=== PATIENT | female | born 1975 | race Caucasian/White ===

== ENCOUNTER 2016-09-29 16:44 | Emergency (ER) | payer MEDICARE, OTHER ==
[2016-09-29 16:51] VITALS: BP 103/48
[2016-09-29 17:12] LABS: Urine Bilirubin Negative (NEGATIVE); Urine Blood Negative /ul (NEGATIVE); Urine Ketone Negative (NEGATIVE); Urine Nitrite Negative (NEGATIVE); Urine Protein Negative (NEGATIVE); Urine Specific Gravity 1.025 SP.GR. (1.005-1.010); Urine Urobilinogen Normal (NORMAL)
[2016-09-29] MEDS ORDERED: KETOROLAC TROMETHAMINE 60 MG/2 ML VIAL IM ONE ×2 (17:15→17:17)
--- NOTE | 2016-09-29 17:16 | ERNOTE ---
Back Pain ER HPI Date of Service: 09/29/16 Presenting Symptoms: hx chronic back pain, other - R flank pain Time Seen by Provider: 09/29/16 16:55 Source: patient Exam Limitations: no limitations Immunizations: IMMUNIZATION HX Immunizations Up to Date Yes History of Influenza Vaccine No Hx Pneumococcal Vaccination No Allergies/Adverse Reactions: Allergies No Known Allergies Allergy (Verified 09/29/16 16:52) Home Medications: HOME MEDICATIONS Levetiracetam [Keppra] 750 mg PO BID 08/01/15 [Last Taken 08/01/15] Cyclobenzaprine HCl [Flexeril] 10 mg PO TID PRN #30 tab 09/29/16 [Last Taken Unknown] Naproxen [Naprosyn] 500 mg PO BID PRN #60 tab 09/29/16 [Last Taken Unknown] Narrative: Pt. comes in with sudden onset R flank pain that radiates to B lower back and down R buttock. Pt. denies any injury or specific spine pain. Pt. denies any alleviating factors but states that the pain resolved after two hours but then returned 15 hours ago severely and awoke pt. from the middle of sleep and has not resolved. pt. denies any prehospital treatment. Pt. denies any dysuria. Review of Systems - Review of Systems Constitutional: Present: no symptoms reported. Absent: recent illness, fever, chills, weakness, fatigue EYE: Present: no symptoms reported ENT: Present: no symptoms reported Respiratory: Present: no symptoms reported. Absent: shortness of breath, cough , wheezing Cardiology: Present: no symptoms reported. Absent: chest pain, palpitations, edema Gastrointestinal/Abdominal: Present: no symptoms reported. Absent: nausea, vomiting, diarrhea Genitourinary: Present: no symptoms reported. Absent: pain, dysuria, hematuria , decreased urinary output Musculoskeletal: Present: back pain - R flank B lower back Skin: Present: no symptoms reported. Absent: rash, change in color Neurological: Present: no symptoms reported. Absent: headache, dizziness/light- headedness, weakness, numbness, tingling All Other Systems: All systems neg except as marked - Patient's Past Medical History Patient History - Medical: Seizures Patient History - Cardiac/Respiratory: No pertinent hx Patient History - Cancer: No Hx of Cancer Patient History - Other: None - Family History Mother Family History - Medical: History Unknown Father Family History - Medical: History Unknown - Social History Living Situations: home Abuse History: No History of abuse Psych History: No pertinent hx Alcohol Use: none Drug Use: marijuana - Immunizations Immunizations Up to Date: Yes Hx Pneumococcal Vaccination: No History of Influenza Vaccine: No Physical Exam - Physical Exam General Appearance: Present: wd/wn, alert, no apparent distress Eye Exam: Normal inspection: bilateral, PERRL: bilateral, EOMI: bilateral Ears, Nose, Throat: Present: normal ENT inspection, hearing grossly normal, normal pharynx Neck: Present: normal inspection, nontender. Absent: lymphadenopathy (R), lymphadenopathy (L) Respiratory: Present: no respiratory distress, normal breath sounds, no accessory muscle use, chest nontender, lungs clear Cardiovascular/Chest: Present: regular rate, rhythm, no murmur, normal peripheral pulses Gastrointestinal/Abdominal: Present: normal bowel sounds, nontender, nondistended, soft, no organomegaly Back Exam: Present: normal range of motion, no vertebral tenderness, CVA tenderness (R). 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 Absent: pallor, skin rash ED Progress - Results and Orders Patient's Lab Results:: I have reviewed the patient's lab results. - Vital Signs Patient's Vital Signs:: I have reviewed the patient's vital signs. Vital Signs: Vital Signs 09/29/16 16:46 Temperature 36.7 C Pulse Rate 71 Respiratory 12 Rate Blood Pressure 103/48 O2 Sat by Pulse 100 Oximetry - X-Ray X-Ray #1 X-Ray: lumbosacral Interpretation: Interp. by me X-ray Comments: DDD of L3/L4 and L2/ L3 and L4/ L5 - Progress/Reassessment Chief Complaint: Back Pain Progress:: Improved Departure Clinical Impression: Degenerative disk disease Qualifiers: Spinal region: lumbosacral Qualified Code(s): M51.37 - Other intervertebral disc degeneration, lumbosacral region Sciatica Qualifiers: Laterality: right Qualified Code(s): M54.31 - Sciatica, right side - Departure Disposition: Home self-care Condition: Good Instructions: Sciatica With [facility] Additional Instructions: Please follow up with primary provider in 2-3 days. Referrals: Niels Baldwin PAC [Primary Care Provider] - Prescriptions: Cyclobenzaprine HCl [Flexeril] 10 mg PO TID PRN #30 tab PRN Reason: MUSCLE SPASMS Naproxen [Naprosyn] 500 mg PO BID PRN #60 tab PRN Reason: Pain
[2016-09-29 17:30] LABS: Urine Appearance Clear; Urine Bacteria 1+; Urine Color Yellow; Urine Hyaline Cast 0-5 /LPF; Urine Mucus Few - 1+; Urine Other Cast 0-5 /LPF; Urine RBC None Seen /hpf (0-5); Urine WBC 0-5 /hpf (0-5)
== END 2016-09-29 18:14 | disposition home or self-care (01) ==
LOC: ER 16:44
DX: M51.37 Other intervertebral disc degeneration, lumbosacral region (principal); M54.31 Sciatica, right side

== ENCOUNTER 2016-11-11 14:43 | Emergency (ER) | payer OTHER ==
--- OUTSIDE RECORDS SUMMARY | 2016-11-11 15:26 | XMS REPORT | Continuity of Care Document ---
:1975 Author Organization [facility] ([facility]) Address [address] [place] [address] Phone [phone] Care Team Providers Name Role Phone Niels Baldwin Primary Care Provider [phone] Source Comments This disclosure is being made pursuant to the Care Everywhere program, applicable federal and state laws, and may not contain all informaitonavailable regarding this patient.[facility] ([facility]) Active Allergies and Adverse Reactions Not on File Current Medications Not on file Active Problems Not on file Most Recent Encounters Date Type Specialty Providers Description 10/07/2016 Office Visit [place] [facility] Niels Baldwin, PA-C Chief Comp : Patient Reported Reason For Visit Social History Tobacco Use Types Packs/Day Years Used Date Never Assessed Plan of Care Health Maintenance Due Date Last Done Comments Hepatitis B Vaccine (1 of 3 - Primary Series) 1975 Tdap Vaccine 02/10/1988 Lipid Disorder Screening 1995 MMR Vaccine 1995 Td Vaccine 1995 Cervical Cancer Screening 2007 Influenza Vaccine: Seasonal (#1) 03/17/2016 Results from Last 3 Months Not on file
--- NOTE | 2016-11-11 15:56 | ERNOTE ---
Medical Problem HPI - General Chief Complaint: General Assessment Time Seen by Provider: 11/11/16 15:16 Source: patient - Immun/Allergies/Home Medications Immunizations: IMMUNIZATION HX Immunizations Up to Date Yes History of Influenza Vaccine No Hx Pneumococcal Vaccination No Allergies/Adverse Reactions: Allergies No Known Allergies Allergy (Verified 11/11/16 15:03) Home Medications: HOME MEDICATIONS levETIRAcetam [Keppra] 750 mg PO BID 08/01/15 [Last Taken 08/01/15] - History of Present History Narrative: Patient presents with a cyst on the left side of her neck that so many years standing. She believes it is getting somewhat worse and is now tired of it and wishes to have it taken out. She describes a moderate chronic pain with palpation. Timing: constant Severity: moderate Review of Systems - Review of Systems Constitutional: Present: See HPI EYE: Present: no symptoms reported ENT: Present: no symptoms reported Respiratory: Present: no symptoms reported Cardiology: Present: no symptoms reported Gastrointestinal/Abdominal: Present: no symptoms reported Genitourinary: Present: no symptoms reported Musculoskeletal: Present: no symptoms reported Skin: Present: See HPI Neurological: Present: no symptoms reported Endocrine: Present: no symptoms reported Hematologic/Lymphatic: Present: no symptoms reported Psych: Present: no symptoms reported - Patient's Past Medical History Patient History - Medical: Seizures Patient History - Cardiac/Respiratory: No pertinent hx Patient History - Cancer: No Hx of Cancer Patient History - Surgical Procedures: Other Patient History - Other: None LMP (females 10-50): last week - Family History Mother Family History - Medical: History Unknown Father Family History - Medical: History Unknown - Social History Living Situations: home Abuse History: No History of abuse Psych History: No pertinent hx Smoking Status: Current every day smoker Have you smoked in the past 12 months: Yes Alcohol Use: none Drug Use: marijuana - Immunizations Immunizations Up to Date: Yes Hx Pneumococcal Vaccination: No History of Influenza Vaccine: No Physical Exam - Physical Exam General Appearance: Present: wd/wn, alert, mild distress Eye Exam: Normal inspection: bilateral, PERRL: bilateral Ears, Nose, Throat: Present: normal ENT inspection, H, normal pharynx Neck: Present: normal inspection, nontender Respiratory: Present: no respiratory distress, normal breath sounds, no accessory muscle use, chest nontender, lungs clear Cardiovascular/Chest: Present: regular rate, rhythm, no murmur, normal peripheral pulses Gastrointestinal/Abdominal: Present: normal bowel sounds, nontender, nondistended, soft, no organomegaly Rectal Exam: Present: deferred Back Exam: Present: normal inspection, normal range of motion Extremity Exam: Present: normal inspection, non-tender, no edema, normal range of motion Neurological Exam: Present: alert, oriented, normal mood/affect Skin Exam: Present: normal color, warm/dry, other - cyst like structure located on the left side of the neck Lymphatic Exam: Present: no adenopathy ED Progress - Vital Signs Patient's Vital Signs:: I have reviewed the patient's vital signs. Vital Signs: Vital Signs 11/11/16 14:58 Temperature 37.4 C Pulse Rate 78 Respiratory 16 Rate Blood Pressure 109/83 O2 Sat by Pulse 78 L Oximetry - Progress/Reassessment Chief Complaint: General Assessment Progress:: Unchanged Plan - Plan Plan: I discussed this epidermal inclusion cyst with Dr. Ace and he agrees to come over and examine the patient and determined the next appropriate course of action. Departure - Departure Clinical Impression: Epidermal inclusion cyst Disposition: Home Follow Up Needed Condition: Good Additional Instructions: Keep your appt with Dr. Ace
[2016-11-12 00:56] VITALS: BP 118/69
== END 2016-11-11 17:30 | disposition home or self-care (01) ==
LOC: ER 14:43
DX: L72.0 Epidermal cyst (principal); Z72.0 Tobacco use

== ENCOUNTER 2016-11-16 15:41 | Day surgery (SDC) | payer OTHER ==
[2016-11-16] MEDS ORDERED: NORMAL SALINE 1,000 ML IV ONE (16:02)
[2016-11-16 16:31] LABS: Hematocrit 37.3 % (37.0-47.0); Hemoglobin 12.5 gm/dL (12.5-16.0); Mean Cell Volume 92.1 fl (78-100); Mean Corpuscular Hemoglobin 30.9 pg (27-31); Mean Corpuscular Hgb Conc 33.5 g/dl (32-36); Mean Platelet Volume 9.8 fl (6.0-9.5); Neutrophil # 5.2 K/mm3 (1.3-6.0); Neutrophil % 53.9 % (42-75.0); Platelet Count 208 K/mm3 (150-450); Red Blood Count 4.05 M/mm3 (4.2-5.4); Red Cell Distribution Width 13.2 % (11.5-14.0); White Blood Count 9.7 K/mm3 (4.0-10.5)
--- NOTE | 2016-11-16 16:34 | ERNOTE ---
Integumentary HPI - Narrative Date of Service: 11/16/16 - General Time Seen by Provider: 11/16/16 15:57 Source: patient Exam Limitations: no limitations - Immun/Allergies/Home Medications Immunizations: IMMUNIZATION HX Immunizations Up to Date Yes History of Influenza Vaccine No Hx Pneumococcal Vaccination No Allergies/Adverse Reactions: Allergies Allergy/AdvReac Type Severity Reaction Status Date / Time No Known Allergies Allergy Verified 11/16/16 15:54 Home Medications: HOME MEDICATIONS levETIRAcetam [Keppra] 750 mg PO BID 08/01/15 [Last Taken 08/01/15] - History of Present Illness Narrative: Pt. comes in with c/o large painful cystic lesion on L neck over carotid artery. Pt. states that she was here four days ago for the same thing and was evaluated by Dr Barth and Dr Ace and would be undergoing consultation for this in 3 days from now but the cyst has gotten bigger, more painful, and red. Pt. also states that she has had a fever, headache, and mild nausea accompanying symptoms. Pt. denies any dizziness, SOB, CP, vomiting or diarrhea. Review of Systems - Review of Systems Constitutional: Present: no symptoms reported, fever, chills, malaise. Absent: recent illness, weakness, fatigue EYE: Present: no symptoms reported ENT: Present: no symptoms reported Respiratory: Present: no symptoms reported. Absent: shortness of breath, cough , wheezing Cardiology: Present: no symptoms reported. Absent: chest pain, palpitations, edema Gastrointestinal/Abdominal: Present: nausea. Absent: vomiting, diarrhea Genitourinary: Present: no symptoms reported Musculoskeletal: Present: no symptoms reported. Absent: back pain, joint pain Skin: Present: lumps - L neck Neurological: Present: headache. Absent: dizziness/light-headedness, numbness, tingling All Other Systems: All systems neg except as marked - Patient's Past Medical History Patient History - Medical: Seizures Patient History - Cardiac/Respiratory: No pertinent hx Patient History - Cancer: No Hx of Cancer Patient History - Surgical Procedures: Other Patient History - Other: None LMP (females 10-50): 3 weeks - Family History Mother Family History - Medical: History Unknown Father Family History - Medical: History Unknown - Social History Living Situations: significant other Abuse History: No History of abuse Psych History: No pertinent hx Smoking Status: Current every day smoker Have you smoked in the past 12 months: Yes Do you dip or chew tobacco: No Alcohol Use: none Drug Use: marijuana - Immunizations Immunizations Up to Date: Yes Hx Pneumococcal Vaccination: No History of Influenza Vaccine: No Physical Exam - Physical Exam General Appearance: Present: wd/wn, alert, no apparent distress Eye Exam: Normal inspection: bilateral, PERRL: bilateral, EOMI: bilateral Ears, Nose, Throat: Present: normal ENT inspection, normal pharynx Neck: Present: normal inspection, nontender. Absent: lymphadenopathy (R), lymphadenopathy (L) Respiratory: Present: no respiratory distress, normal breath sounds, no accessory muscle use, chest nontender, lungs clear Cardiovascular/Chest: Present: regular rate, rhythm, no murmur, normal peripheral pulses Gastrointestinal/Abdominal: Present: normal bowel sounds, nontender, nondistended, soft, no organomegaly Back Exam: Present: normal inspection, normal range of motion, no CVA tenderness , no vertebral tenderness Extremity Exam: Present: normal inspection, non-tender, normal range of motion, no edema Neurological Exam: Present: alert, oriented, normal mood/affect, no motor/ sensory deficits Skin Exam: Present: other - cystic lesion 3cm in diameter erythematous, edematous, and fluctuant Lymphatic Exam: Present: axilla node (L), other - L cervical anterior node ED Progress - Date and Time Seen: Date and Time: 11/16/16 18:[address] Ace and he will take pt. to surgury for I and D today - Results and Orders Patient's Lab Results:: I have reviewed the patient's lab results. - Vital Signs Patient's Vital Signs:: I have reviewed the patient's vital signs. Vital Signs: Vital Signs 11/16/16 15:47 Temperature 37.7 C H Pulse Rate 80 Respiratory 15 Rate Blood Pressure 133/81 O2 Sat by Pulse 100 Oximetry - Progress/Reassessment Chief Complaint: Abscess Departure Clinical Impression: Epidermal inclusion cyst - Departure Disposition: [facility] Condition: Fair
[2016-11-16 16:41] LABS: Albumin * 4.4 gm/dl (3.4-5.0); Anion Gap 14.3 mmol/L (6.8-13.8); BUN/Creatinine Ratio 11.6 (9.0-21.6); Bilirubin, Total 0.3 mg/dL (0.0-1.1); CRP 0.3 mg/dL (0.0-0.9); Ca. Corrected For Albumin 8.1 mg/dL (8.4-10.2); Calcium * 8.7 mg/dL (7.9-10.9); Carbon Dioxide 25.9 mmol/L (24-32.6); Potassium 3.2 mmol/L (3.4-4.6); Total Protein 7.7 gm/dL (6.2-8.2)
--- OUTSIDE RECORDS SUMMARY | 2016-11-16 17:52 | XMS REPORT | Continuity of Care Document ---
:1975 Author Organization [facility] ([facility]) Address [address] [place] [address] Phone [phone] Care Team Providers Name Role Phone Niels Baldwin Primary Care Provider [phone] Source Comments This disclosure is being made pursuant to the Care Everywhere program, applicable federal and state laws, and may not contain all informaitonavailable regarding this patient.[facility] ([facility]) Active Allergies and Adverse Reactions Not on File Current Medications Not on file Active Problems Not on file Most Recent Encounters Date Type Specialty Providers Description 10/07/2016 Office Visit [place] [facility] Niels Baldwin, PA-C Chief Comp : Patient [...]
--- NOTE | 2016-11-16 18:15 | HP ---
Chief Complaint - Chief Complaint Date of Service: 11/16/16 Time of Service: 18:03 Chief Complaint: painful mass on the left neck History of Present Illness: She has had a mass for about 6 years. She was actually seen in ER and scheduled to be seen in the office for this, however it has gotten much more tender and swollen. - Patient's Past Medical History Patient History - Medical: Seizures, Other - last grand mal seizure about 2 years ago. Has had partial seizures--one in the arm for which she was seen here last fall Patient History - Cardiac/Respiratory: No pertinent hx, Other - 3 children Patient History - Cancer: No Hx of Cancer Patient History - Surgical Procedures: Other - AVM of the brain operated in [place] Patient History - Other: None LMP (females 10-50): 3 weeks - Family History Mother Family History - Medical: History Unknown Father Family History - Medical: History Unknown - Social History Living Situations: significant other Abuse History: No History of abuse Psych History: No pertinent hx Smoking Status: Current every day smoker Have you smoked in the past 12 months: Yes Do you dip or chew tobacco: No Alcohol Use: none Drug Use: marijuana - Immunizations Immunizations Up to Date: Yes Hx Pneumococcal Vaccination: No History of Influenza Vaccine: No Review Of Systems (GEN) - Review of Systems Generalized/Overall Review: Present: No Symptoms Reported. Absent: Chills, Fever EENTM: Present: Other - tender swollen area left neck Respiratory: Present: No Symptoms Reported Cardiac: Present: No Symptoms Reported Abdominal: Present: No Symptoms Reported Genitourinary: Present: No Symptoms Reported Musculoskeletal: Present: No Symptoms Reported Neurological: Present: Other - no recent neurologic events/symtoms Skin: Present: Other - mass left neck Immunizations: IMMUNIZATION HX Immunizations Up to Date Yes History of Influenza Vaccine No Hx Pneumococcal Vaccination No Allergies/Adverse Reactions: Allergies Allergy/AdvReac Type Severity Reaction Status Date / Time No Known Allergies Allergy Verified 11/16/16 15:54 Home Medications: HOME MEDICATIONS levETIRAcetam [Keppra] 750 mg PO BID 08/01/15 [Last Taken 08/01/15] Exam - Exam Vital Signs: Vital Signs - Last Taken Temp 37.5 C 11/16/16 17:31 Pulse 67 11/16/16 17:31 Resp 14 04/02/17 17:31 BP 126/79 11/16/16 17:31 Pulse Ox 100 11/16/16 17:31 Constitutional: Present: Alert, Oriented x3, Cooperative, Mild distress ENT Exam: Present: hearing grossly normal, other - poor dentition 3 cm mass left neck Eye Exam: bilateral eye: normal inspection Neck: Present: full range of motion, supple, normal inspection Back Exam: Present: normal inspection Breasts: Present: Exam deferred Respiratory: Present: lungs clear, other - diminished breath sounds Cardiovascular/Chest: Present: regular rate, rhythm, no murmur, other - distant heart sounds Peripheral Pulses: carotid (R): 4+, carotid (L): 4+ Abdomen: Present: soft, nontender /Rectal: Present: Exam deferred Extremity: Present: normal range of motion, normal inspection, no pedal edema, no calf tenderness Skin Exam: Present: normal color, warm/dry Lymphatic: Present: no adenopathy Neurologic: Present: 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, normal cerebellar test, no motor/ sensory deficits Appearance: Present: appropriate appearance, appropriate insight Eye contact: Present: cooperative, good eye contact, normal speech Thoughts: Present: normal thought pattern Diagnostic Studies: Abnormal Lab Results 11/16/16 11/16/16 11/16/16 Range/Units 16:05 16:05 16:05 RBC 4.05 L (4.2-5.4) M/mm3 MPV 9.8 H (6.0-9.5) fl ESR 20 H (0-15) mm/hr Potassium 3.2 L (3.4-4.6) mmol/L Anion Gap 14.3 H (6.8-13.8) mmol/L Calcium Adj for Albumin 8.1 L (8.4-10.2) mg/dL ALT 12 L (19-67) U/L Laboratory Results WBC 9.7 K/mm3 (4.0-10.5) 11/16/16 16:05 RBC 4.05 M/mm3 (4.2-5.4) L 11/16/16 16:05 Hgb 12.5 gm/dL (12.5-16.0) 11/16/16 16:05 Hct 37.3 % (37.0-47.0) 11/16/16 16:05 MCV 92.1 fl (78-100) 11/16/16 16:05 MCH 30.9 pg (27-31) 11/16/16 16:05 MCHC 33.5 g/dl (32-36) 11/16/16 16:05 RDW 13.2 % (11.5-14.0) 11/16/16 16:05 Plt Count 208 K/mm3 (150-450) 11/16/16 16:05 MPV 9.8 fl (6.0-9.5) H 11/16/16 16:05 Immature Gran % (Auto) 0.20 % (0.001-0.429) 11/16/16 16:05 Immature Gran # (Auto) 0.02 K/mm3 (0.000-0.0310) 11/16/16 16:05 Neutrophils % 53.9 % (42-75.0) 11/16/16 16:05 Lymphocytes % 35.5 % (20-51) 11/16/16 16:05 Monocytes % 7.5 % (0.0-9) 11/16/16 16:05 Eosinophils % 2.2 % (0.0-3.0) 11/16/16 16:05 Basophils % 0.7 % (0.0-1.0) 11/16/16 16:05 Nucleated RBC % 0.0 k/mm3 (0-1) 11/16/16 16:05 Neutrophils # 5.2 K/mm3 (1.3-6.0) 11/16/16 16:05 Lymphocytes # 3.4 k/mm3 (1.5-3.5) 11/16/16 16:05 Monocytes # 0.7 k/mm3 (0.0-1.0) 11/16/16 16:05 Eosinophils # 0.2 k/mm3 (0.0-0.7) 11/16/16 16:05 Absolute Basophils 0.1 k/mm3 (0.0-0.1) 11/16/16 16:05 ESR 20 mm/hr (0-15) H 11/16/16 16:05 Sodium 141 mmol/L (132-142) 11/16/16 16:05 Plasma Sodium 141 mmol/L (130-142) 11/16/16 16:05 Potassium 3.2 mmol/L (3.4-4.6) L 11/16/16 16:05 Chloride 104 mmol/L (97-106) 11/16/16 16:05 Carbon Dioxide 25.9 mmol/L (24-32.6) 11/16/16 16:05 Anion Gap 14.3 mmol/L (6.8-13.8) H 11/16/16 16:05 BUN 10 mg/dL (3-23) 11/16/16 16:05 Creatinine 0.86 mg/dL (0.4-1.4) 11/16/16 16:05 Est GFR (Non-Af Amer) 78 mL/min (60-130) 11/16/16 16:05 BUN/Creatinine Ratio 11.6 (9.0-21.6) 11/16/16 16:05 Random Glucose 83 mg/dL (70-110) 11/16/16 16:05 Lactic Acid, Venous 1.7 mmol/L (0.4-2.0) 11/16/16 16:05 Calcium 8.7 mg/dL (7.9-10.9) 11/16/16 16:05 Calcium Adj for Albumin 8.1 mg/dL (8.4-10.2) L 11/16/16 16:05 Total Bilirubin 0.3 mg/dL (0.0-1.1) 11/16/16 16:05 AST 11 U/L (0-48) 11/16/16 16:05 ALT 12 U/L (19-67) L 11/16/16 16:05 Alkaline Phosphatase 71 U/L (50-170) 11/16/16 16:05 C-Reactive Prot, Quant 0.3 mg/dL (0.0-0.9) 11/16/16 16:05 Total Protein 7.7 gm/dL (6.2-8.2) 11/16/16 16:05 Albumin 4.4 gm/dl (3.4-5.0) 11/16/16 16:05 Assessment/Plan - Assessment/Plan (1) Epidermal inclusion cyst Assessment: The cyst is inflammed, however is amenable to excision. It will require OR for exposure and sedation. Explained the procedure, risks and expected course. After an interactive discussion, her questions were answered to her apparent satisfaction and informed consent obtained for excision mass left neck. Problem: Acute
[2016-11-16] MEDS ORDERED: RINGERS SOLUTION,LACTATED 1,000 ML IV ONE (18:50)
[2016-11-16] MEDS ORDERED: ceFAZolin SODIUM 1 GM VIAL IV ONE (19:00)
[2016-11-16] MEDS ORDERED: BUPIVACAINE HCL/EPINEPHRINE 50 ML VIAL IJ ONE ×2 (19:10)
[2016-11-16] MEDS ORDERED: MUPIROCIN 22 APPL TUBE TP ONE (19:30)
[2016-11-16] MEDS ORDERED: oxyCODONE HCL/ACETAMINOPHEN 1 TAB TABLET PO ONE (19:42)
[2016-11-16] MEDS ORDERED: RINGERS SOLUTION,LACTATED 1,000 ML IV PRN (19:42)
--- NOTE | 2016-11-16 19:58 | OR ---
Operative Report - Dictated Report Narrative: OPERATIVE REPORT DATE OF OPERATION: 11/16/16 PREOPERATIVE DIAGNOSIS: Epidermal inclusion cyst left neck. POSTOPERATIVE DIAGNOSIS: Same (pathology pending) OPERATION: Excision epidermal inclusion cyst (3 cm) left neck SURGEON: Uche Ace MD ANESTHESIA: MAC/local Kunal Gaffney CRNA INDICATIONS FOR PROCEDURE: The patient is a 41-year-old female who has had a cyst on the left neck for about 6 years. She was actually seen in the emergency room for this the other day and scheduled for an office appointment for excision. The area has become more tender and enlarged. FINDINGS: Inflamed 3 cm epidermal inclusion cyst left neck NARRATIVE OF PROCEDURE: The patient was identified preoperatively, the surgical site was identified, and prior to the administration of anesthetic a multidisciplinary timeout was observed. The patient was given a gram of intravenous Ancef in addition to Rocephin which was previously administered. SCDs were applied and general endotracheal anesthetic administered. The patient 's left neck was prepped with Betadine solution and isolated with sterile drapes. The remainder the patient was covered with sterile disposable drapes. A skin incision was outlined with a marking pen to lie an existing skin crease and include the apparent central pore. The area was infiltrated with 0.5% Marcaine with epinephrine. An elliptical skin incision was made over the mass. The cyst was then removed from surrounding scan and subcutaneous tissue using Metzenbaum scissors. There was no residual sac. The cavity was treated with Betadine and rinsed clean with saline. The area appeared hemostatic. After receiving a correct sponge needle and instrument count attention was turned to closing the wound. The skin and subcutaneous tissue was approximated with interrupted vertical mattress sutures of 4-0 nylon. The operative site was washed and dried. A dressing of Bactroban ointment folded 4 x 4 and Medipore tape was applied. The patient tolerated the anesthetic and procedure well without complication she was transferred to the recovery room awake extubated and in stable condition. Reviewed and electronically signed
[2016-11-16 20:49] VITALS: BP 114/75
[2016-11-16] MEDS ORDERED: oxyCODONE HCL/ACETAMINOPHEN 1 TAB TABLET ONE (20:55)
== END 2016-11-16 17:50 | disposition home or self-care (01) ==
LOC: ER 15:41 → AMB 17:49
PROVIDERS: ATTEND Surgery
PROC: 0HB4XZZ Excision of Neck Skin, External Approach (ICD-10-PCS; principal; 2016-11-16 18:35)
DX: L72.0 Epidermal cyst (principal); G40.89 Other seizures; F17.200 Nicotine dependence, unspecified, uncomplicated; Z68.1 Body mass index [BMI] 19.9 or less, adult